=== PATIENT | male | born 1980 | race Caucasian/White ===

== ENCOUNTER 2017-02-05 22:54 | Emergency (ER) | payer SELFPAY ==
[2017-02-05] MEDS ORDERED: IPRATROPIUM/ALBUTEROL 0.5-2.5 MG/3 ML AMPUL NEB ONE (23:24)
[2017-02-05] MEDS ORDERED: NALOXONE HCL INJ/PF 0.4 MG/1 ML SDV IV ONE (23:25)
--- NOTE | 2017-02-05 23:30 | ER Document Report ---
ED General <MARIA EUGENIA FAJARDO - Last Filed: 02/06/17 07:23> <CRYSTAL CASTILLO - Last Filed: 02/06/17 10:30> - General Stated Complaint: POSSIBLE OVERDOSE Time Seen by Provider: 02/05/17 23:19 Notes: Patient is 36-year-old male presents with complaint of overdose. He snorted 60 mg of oxycodone. He has a history of intermittent opiate abuse including heroin use. He denies any fevers. He has had some vomiting. He says he may have aspirated. He was given 4 mg of Narcan IM in the field. He denies any recent fevers or infections. He says he takes no other chronic medications. He is a smoker. No other complaints at this time. (MARIA EUGENIA FAJARDO) - Related Data Allergies/Adverse Reactions: No Known Allergies Allergy (Unverified 02/05/17 23:44) Past Medical History - Social History Smoking Status: Current Every Day Smoker Frequency of alcohol use: Occasional Drug Abuse: Heroin, Prescription drugs Family History: Reviewed & Not Pertinent <MARIA EUGENIA FAJARDO - Last Filed: 02/06/17 07:23> Review of Systems <MARIA EUGENIA FAJARDO - Last Filed: 02/06/17 07:23> <CRYSTAL CASTILLO - Last Filed: 02/06/17 10:30> - Review of Systems Notes: My Normal Review Basic REVIEW OF SYSTEMS: CONSTITUTIONAL : Denies fever, chills, or sweats. Denies recent illness. EENT: Denies eye, ear, throat, or mouth pain or symptoms. Denies nasal or sinus congestion. CARDIOVASCULAR: Denies chest pain. RESPIRATORY: Difficulty breathing GASTROINTESTINAL: Denies abdominal pain. Vomiting. MUSCULOSKELETAL: Denies neck or back pain or joint pain or swelling. SKIN: Denies rash or skin lesions. NEUROLOGICAL: Denies altered mental status or loss of consciousness. Denies headache. Denies weakness or paralysis or loss of use of either side. Denies problems with gait or speech. Denies sensory or motor loss. ALL OTHER SYSTEMS REVIEWED AND NEGATIVE. (MARIA EUGENIA FAJARDO) Physical Exam <MARIA EUGENIA FAJARDO - Last Filed: 02/06/17 07:23> <CRYSTAL CASTILLO - Last Filed: 02/06/17 10:30> - Vital signs Vitals: Pulse Ox 88 L 02/05/17 23:10 - Notes Notes: General Appearance: Well nourished, somnolent, cooperative, no acute distress, no obvious discomfort. Vitals: reviewed, See vital signs table. Head: no swelling or tenderness to the head Eyes: PERRL, EOMI, Conjuctiva clear Mouth: No decreasd moisture Neck: Supple, no neck tenderness, No thyromegaly Lungs: No wheezing, No rales, scattered rhonci, No accessory muscle use, good air exchange bilaterally. Heart: Normal rate, Regular rythm, No murmur, no rub Abdomen: Normal BS, soft, No rigidity, No abdominal tenderness, No guarding, no rebound, no abdominal masses, no organomegaly Extremities: strength 5/5 in all extremities, good pulses in all extremities, no swelling or tenderness in the extremities, no edema. Skin: warm, dry, appropriate color, no rash Neuro: slightly garbled speech, oriented x 3, Somnolent affect, responds appropriately to questions. Patient is able to move all extremities without difficulty. No focal neurologic deficits on exam. (MARIA EUGENIA FAJARDO) Course - Laboratory Result Diagrams: 02/06/17 05:50 02/05/17 23:15 <MARIA EUGENIA FAJARDO - Last Filed: 02/06/17 07:23> - Laboratory Result Diagrams: 02/06/17 05:50 02/05/17 23:15 <CRYSTAL CASTILLO - Last Filed: 02/06/17 10:30> - Re-evaluation Re-evalutation: 02/05/17 23:25 Patient is feeling still somewhat and says he still having a hard time breathing. His oxygen saturation is still anywhere from 89-92%. I will order a little bit more Narcan. I will order chest x-ray to look for evidence of aspiration. I will give him breathing treatment. He is a smoker. Patient will continue to be closely monitored on a cardiac rehabilitation specialist. 02/06/17 00:42 Patient's breathing is much improved. His lung rivera are now clear. He still requiring some supplemental oxygen but was able to turn down his oxygen from 4 L to 2 L. He now mentions to me now that he has had some numbness in his right leg ever since he woke up from the overdose. He does have good strength in his right leg and the function appears normal however he says it is numb from the hip down to the toes. I will obtain CT scans to make sure that he did not have any injury, such as falling and hitting his head, when he blacked out from the overdose. Evaluation of the right leg he has good pulses. Good capillary refill. Good color in the foot. No signs of vascular compromise of the leg. 02/06/17 06:53 CT scan shows possible stroke in the left basal ganglia. This may be why he has numbness into his right leg. I do not suspect embolic stroke. Suspect this is related to hypoxia and hypotension related to his opiate overdose. I suspect this because the symptoms started immediately after he woke from his overdose. He has no weakness into his leg. Is all numbness. We will obtain MRI this morning to further delineate. Once MRI results are back he will likely be discharged to follow-up with neurology. He has no carotid bruits. He has no murmur on heart auscultation. I did explain the plan to the patient he is agreeable to it. If there is a another more concerning finding on MRI than disposition plan may change. Patient agrees with plan. 02/06/17 07:23 (MARIA EUGENIA FAJARDO) 02/06/17 10:24 MRI does not show any signs of stroke at this time. Patient was educated about the use of narcotics and the dangers . Patient states understanding will discharge home. 02/06/17 10:29 Reevaluation patient still states having some slight leg numbness states feels like his leg is asleep. Patient otherwise neurologically intact. The back pain no signs suspicious for cauda equina or other cord process. More likely patient states was out on his side for possibly "a long time could be a neurapraxia MRI again was negative again educated the patient (CRYSTAL CASTILLO) - Vital Signs Vital signs: Temp Pulse Resp BP Pulse Ox 98.5 F 77 16 118/77 92 02/06/17 09:46 02/06/17 09:46 02/06/17 09:46 02/06/17 09:46 02/06/17 09:46 - Laboratory Laboratory results interpreted by me: 02/05/17 02/05/17 02/06/17 23:15 23:15 05:50 WBC 28.3 H 29.8 H Seg Neuts % (Manual) 81 H 84 H Lymphocytes % (Manual) 8 L 8 L Abs Neuts (Manual) 23.8 H 26.5 H Abs Monocytes (Manual) 2.3 H Sodium 145.7 H BUN 24 H Discharge <MARIA EUGENIA FAJARDO - Last Filed: 02/06/17 07:23> <CRYSTAL CASTILLO - Last Filed: 02/06/17 10:30> - Discharge Clinical Impression: Opiate overdose Qualifiers: Encounter type: initial encounter Injury intent: accidental or unintentional Qualified Code(s): T40.601A - Poisoning by unspecified narcotics, accidental ( unintentional), initial encounter Condition: Good Instructions: Family Physicians / Practices Additional Instructions: Your MRI was negative for any acute stroke. However continue use of opiate medications can cause hypoxic injury which is within your brain is not receiving of oxygen can cause stroke or brain . Would highly recommend following up with your primary care physician. He may also follow 1 physicians listed. Please return to the ER if you have worsening numbness, any weakness in you extremities, severe headache, vomiting, difficulty breathing, or feel unwell. Please avoid opiate use as you will continue to have complications as you did today and most likely will eventually if you continue to use opiate medications or heroin. I have written a prescription for Narcan. I hope you never have to use this because hopefully you will never use opiates again; however, if you use heroin or opiates and feel sleepy or somnolent please use the Narcan immediately and call 911. Prescriptions: Naloxone HCl [Narcan] 4 mg NS KINGS #1 spray Forms: Return to Work Referrals: HUAN PINON MD [ACTIVE STAFF] - Follow up tomorrow ([facility] Dr. Pinon's office for close follow appointment)
[2017-02-05 23:38] LABS: HEMATOCRIT 41.2 % (37.9-51.0); HGB HCT DIFFERENCE 0.8; MEAN CORPUSCULAR HEMOGLOBIN 30.2 pg (27.0-33.4); MEAN CORPUSCULAR VOLUME 89 fl (80-97); RED BLOOD COUNT 4.63 10^6/uL (4.35-5.55); WHITE BLOOD COUNT 28.3 10^3/uL (4.0-10.5)
[2017-02-05 23:53] LABS: ANION GAP 18 (5-19); BLOOD UREA NITROGEN 24 mg/dL (7-20); CALCIUM 9.1 mg/dL (8.4-10.2); CARBON DIOXIDE 24 mmol/L (22-30); CHLORIDE 104 mmol/L (98-107); CREATININE RESULT 1.19 mg/dL (0.52-1.25); GLUCOSE 78 mg/dL (75-110); POTASSIUM 4.7 mmol/L (3.6-5.0); SODIUM 145.7 mmol/L (137-145)
[2017-02-05] MEDS ORDERED: ONDANSETRON HCL INJ/PF 4 MG/2 ML SDV IV ONE (23:54)
[2017-02-05 23:59] LABS: ALCOHOL < 10 mg/dL (NONE DETECTED)
[2017-02-06 00:10] LABS: BAND NEUTROPHILS % (MANUAL) 3 % (3-5); BASOPHILS % (MANUAL) 0 % (0-2); EOSINOPHILS % (MANUAL) 0 % (0-6); LYMPHOCYTES % (MANUAL) 8 % (13-45); TOTAL CELLS COUNTED 100
[2017-02-06 00:11] LABS: RBC MORPHOLOGY COMMENT NORMO-CYTIC/CHROMIC
--- NOTE | 2017-02-06 00:14 | RADIOLOGY REPORT (SQ) ---
EXAM DESCRIPTION: CHEST SINGLE VIEW COMPLETED DATE/TIME: 02/05/2017 11:56 pm REASON FOR STUDY: dyspnea, overdose, ?aspiration COMPARISON: None. EXAM PARAMETERS: NUMBER OF VIEWS: One view. TECHNIQUE: Single frontal radiographic view of the chest acquired. RADIATION DOSE: NA LIMITATIONS: None. FINDINGS: LUNGS AND PLEURA: No consolidation, pneumothorax or pleural effusion. Incidental note is made of an accessory azygos lobe. MEDIASTINUM AND HILAR STRUCTURES: No masses. Contour normal. HEART AND VASCULAR STRUCTURES: Heart normal in size. Normal vasculature. BONES: No acute findings. HARDWARE: None in the chest. IMPRESSION: No acute radiographic finding in the chest. TECHNICAL DOCUMENTATION: JOB ID: [id number]
[2017-02-06 00:19] LABS: URINE BARBITURATES SCREEN NEGATIVE; URINE METHADONE SCREEN NEGATIVE; URINE OPIATES LOW UNCONFIRMED POSITIVE; URINE PHENCYCLIDINE SCREEN NEGATIVE
--- NOTE | 2017-02-06 01:47 | RADIOLOGY REPORT (SQ) ---
EXAM DESCRIPTION: CT HEAD WITHOUT COMPLETED DATE/TIME: 02/06/2017 1:13 am REASON FOR STUDY: right leg numbness COMPARISON: None. TECHNIQUE: Axial images acquired through the brain without intravenous contrast. Images reviewed wi th bone, brain and subdural windows. Images stored on PACS. All CT scanners at this facility use dose modulation, iterative reconstruction, and/or weight based d osing when appropriate to reduce radiation dose to as low as reasonably achievable (ALARA). [facility]: Dose Right [facility]: CareDose [facility]: Dose Right [facility]: Teradose 4D [facility]: [employer] RADIATION DOSE: mGy. LIMITATIONS: None. FINDINGS: VENTRICLES: Normal size and contour. CEREBRUM: No mass effect. No hemorrhage. No midline shift. There is a 7 mm hypodense area at the l eft basal ganglia, globus pallidus (images 15-16/36). Elsewhere in the brain the torres-white matter d ifferentiation is preserved. CEREBELLUM: No mass effect. No hemorrhage. No alteration of density. No evidence for acute infarct ion. EXTRAAXIAL SPACES: No fluid collections. ORBITS AND GLOBE: Symmetrical contour of the globes. CALVARIUM: No depressed skull fracture. PARANASAL SINUSES: Mucosal thickening at the bilateral sphenoid sinuses. Mucous retention cyst/polyp s at the right maxillary sinus SOFT TISSUES: No hematoma. IMPRESSION: 7 mm hypodense area at the left basal ganglia, may represent an acute/subacute infarct. Evaluation with MRI as clinically warranted. No acute intracranial hemorrhage. EVIDENCE OF ACUTE STROKE: YES. COMMENT: Pertinent positive or negative findings of the imaging study reported as a CRITICAL EXAM romel FAJARDO DO at01:37 hrs on 02/06/2017. Category of Critical Exam: Acute/ subacute infarct at the left basal ganglia. Quality ID # [id number]: Final reports with documentation of one or more dose reduction techniques (e.g., Au tomated exposure control, adjustment of the mA and/or kV according to patient size, use of iterative reconstruction technique) TECHNICAL DOCUMENTATION: JOB ID: [id number] 2010 [employer]- All Rights Reserved
[2017-02-06] MEDS ORDERED: ONDANSETRON HCL INJ/PF 4 MG/2 ML SDV IV ONE (03:36)
[2017-02-06 06:10] LABS: HEMATOCRIT 42.1 % (37.9-51.0); HEMOGLOBIN 14.1 g/dL (13.5-17.0); HGB HCT DIFFERENCE 0.2; MEAN CORPUSCULAR HEMOGLOBIN 29.6 pg (27.0-33.4); MEAN CORPUSCULAR HGB CONC 33.6 g/dL (32.0-36.0); MEAN CORPUSCULAR VOLUME 88 fl (80-97); RED BLOOD COUNT 4.78 10^6/uL (4.35-5.55); RED CELL DISTRIBUTION WIDTH 12.9 % (11.5-14.0); WHITE BLOOD COUNT 29.8 10^3/uL (4.0-10.5)
[2017-02-06 06:51] LABS: BAND NEUTROPHILS % (MANUAL) 5 % (3-5); BASOPHILS % (MANUAL) 0 % (0-2); EOSINOPHILS % (MANUAL) 0 % (0-6); LYMPHOCYTES % (MANUAL) 8 % (13-45); TOTAL CELLS COUNTED 100
[2017-02-06 06:53] LABS: POIKILOCYTOSIS SLIGHT; TEAR DROP CELLS SLIGHT
--- NOTE | 2017-02-06 09:03 | RADIOLOGY REPORT (SQ) ---
EXAM DESCRIPTION: MRI HEAD COMBO COMPLETED DATE/TIME: 02/06/2017 8:31 am REASON FOR STUDY: Lesion on CT scan. COMPARISON: CT brain 02/06/2017 TECHNIQUE: Multiplanar imaging includes noncontrasted T1, T2, FLAIR, diffusion with ADC map and post gadolinium contrast T1 sequences. Images stored on PACS. CONTRAST TYPE AND DOSE: 20 mL IV MultiHance gadolinium RENAL FUNCTION: GFR > 60. LIMITATIONS: None. FINDINGS: ANATOMY: No congenital anomalies. Normal vascular flow voids. Pituitary fossa normal. CSF SPACES: Benign left basal ganglia prominent perivascular space accounts for the focal decreased d ensity seen on PET-CT 02/06/2017. Normal in size and contour. No hemorrhage. CEREBRUM: Sulci and gyri normal in size and contour. Normal white matter signal on FLAIR imaging. No evidence of hemorrhage, mass, or extraaxial fluid collection. No abnormal enhancement post contrast. POSTERIOR FOSSA: No signal alteration. No hemorrhage. No edema, masses, or mass effect. Internal jazmyn tory canals, cerebellopontine angles, mastoids normal. No enhancing lesions. No abnormal enhancement post contrast. DIFFUSION IMAGING: Negative for acute or subacute infarction. ORBITS: No masses. Globes normal. PARANASAL SINUSES: Mucus or serous retention cysts in the right maxillary sinus. Mucous membrane thi ckening right sphenoid sinus. OTHER: No other significant finding. IMPRESSION: NORMAL MRI OF THE BRAIN WITHOUT AND WITH INTRAVENOUS GADOLINIUM CONTRAST. EVIDENCE OF ACUTE STROKE: NO. TECHNICAL DOCUMENTATION: JOB ID: [id number]- All Rights Reserved
[2017-02-06 09:47] VITALS: BP 118/77
== END 2017-02-06 10:34 | disposition home or self-care (01) ==
LOC: ER 22:54
DX: T40.601A Poisoning by unspecified narcotics, accidental (unintentional), initial encounter (principal); R11.10 Vomiting, unspecified; F11.10 Opioid abuse, uncomplicated; F17.200 Nicotine dependence, unspecified, uncomplicated
CPT/HCPCS: 94640; 99285; 96374; 96375; 36415; 80307 ×2; 85025; 80048; 70553; 71010; 70450; A9577; J2310; J2405; J7620